=== PATIENT | female | born 1945 | race Caucasian/White ===

== ENCOUNTER 2022-05-11 09:29 | Outpatient (REF) | payer MEDICARE, MEDICAID, SELFPAY ==
--- NOTE | ~2022-05-11 | XR_ITS ---
EXAMINATION: AP BILATERAL KNEE STANDING. BILATERAL KNEE. CLINICAL INFORMATION: Bilateral knee pain. COMPARISON: None TECHNIQUE: AP bilateral knee standing. 2 views each knee. FINDINGS: AP bilateral knee standing: There is bilateral genu valgus deformity of both knees with loss of medial and lateral compartment both knees slightly worse on the right with moderate periarticular spurring lateral compartment right knee and mild periarticular spurring in the medial compartments of both knees. Is a small joint effusion without loose bodies.. Left knee: There is no visible acute fracture, dislocation or subluxation seen. No bony erosive changes. The patellofemoral compartment joint space is narrowed. There is a small anterior suprapatella enthesophyte. Superior patellar spurring is noted. Right knee: There is mild suprapatellar joint effusion with loss of right knee joint space. No bony erosive changes seen. Loss of patellofemoral compartment joint space seen. There are no loose bodies. XR/XR knee standing BI IMPRESSION: Bilateral genu valgus deformity of the knees slightly greater on the right. There is degenerative arthritic changes medial compartment both knees slightly more severe in the lateral compartment right knee. There is minimal left and mild right suprapatellar joint effusion. Degenerative arthritic changes bilateral patellofemoral compartments. No visible acute fracture or loose body seen.
--- NOTE | ~2022-05-11 | XR_ITS ---
EXAMINATION: AP BILATERAL KNEE STANDING. BILATERAL KNEE. CLINICAL INFORMATION: Bilateral knee pain. COMPARISON: None TECHNIQUE: AP bilateral knee standing. 2 views each knee. FINDINGS: AP bilateral knee standing: There is bilateral genu valgus deformity of both knees with loss of medial and lateral compartment both knees slightly worse on the right with moderate periarticular spurring lateral compartment right knee and mild periarticular spurring in the medial compartments of both knees. Is a small joint effusion without loose bodies.. Left knee: There is no visible acute fracture, dislocation or subluxation seen. No bony erosive changes. The patellofemoral compartment joint space is narrowed. There is a small anterior suprapatella enthesophyte. Superior patellar spurring is noted. Right knee: There is mild suprapatellar joint effusion with loss of right knee joint space. No bony erosive changes seen. Loss of patellofemoral compartment joint space seen. There are no loose bodies. XR/XR knee LT 2V IMPRESSION: Bilateral genu valgus deformity of the knees slightly greater on the right. There is degenerative arthritic changes medial compartment both knees slightly more severe in the lateral compartment right knee. There is minimal left and mild right suprapatellar joint effusion. Degenerative arthritic changes bilateral patellofemoral compartments. No visible acute fracture or loose body seen.
--- NOTE | ~2022-05-11 | XR_ITS ---
EXAMINATION: AP BILATERAL KNEE STANDING. BILATERAL KNEE. CLINICAL INFORMATION: Bilateral knee pain. COMPARISON: None TECHNIQUE: AP bilateral knee standing. 2 views each knee. FINDINGS: AP bilateral knee standing: There is bilateral genu valgus deformity of both knees with loss of medial and lateral compartment both knees slightly worse on the right with moderate periarticular spurring lateral compartment right knee and mild periarticular spurring in the medial compartments of both knees. Is a small joint effusion without loose bodies.. Left knee: There is no visible acute fracture, dislocation or subluxation seen. No bony erosive changes. The patellofemoral compartment joint space is narrowed. There is a small anterior suprapatella enthesophyte. Superior patellar spurring is noted. Right knee: There is mild suprapatellar joint effusion with loss of right knee joint space. No bony erosive changes seen. Loss of patellofemoral compartment joint space seen. There are no loose bodies. XR/XR knee RT 2V IMPRESSION: Bilateral genu valgus deformity of the knees slightly greater on the right. There is degenerative arthritic changes medial compartment both knees slightly more severe in the lateral compartment right knee. There is minimal left and mild right suprapatellar joint effusion. Degenerative arthritic changes bilateral patellofemoral compartments. No visible acute fracture or loose body seen.
== END 2022-05-11 09:30 | disposition home or self-care (01) ==
LOC: HO.HOSX 09:29
PROVIDERS: Visit Provider Orthopaedic Surgery
DX: M17.11 Unilateral primary osteoarthritis, right knee (principal); M25.562 Pain in left knee; Z86.73 Personal history of transient ischemic attack (TIA), and cerebral infarction without residual deficits
CPT/HCPCS: 20610; 73560; 73565; 99202; J1100

== ENCOUNTER 2023-04-24 14:09 | Outpatient (AMB) | payer MEDICARE, MEDICAID, SELFPAY ==
--- NOTE | 2023-04-24 14:38 | A.OFFVIS_ITS ---
Intake Vital Signs 04/24/23 14:45 Height 5 ft 1 in Weight 130 lb BMI 24.6 Intake Visit Reasons: New prob Bilateral numbness & pain Intake Note: Sandra 78 yr old right hand dominant female presents today with her son Sergio for bilateral hand numbness and tingling. States her right is worse. States she has weakness in hands, feels a sharp electric sharp, pins and needles sensation in fingers. States numbness started about 7 months ago and has worsen. States her numbness is constant during the day. Denies prior treatment. No EMG done. Patient doesnt recall which medication she is allergic to. Allergies No Known Allergies Allergy (Verified 04/24/23 14:42) HPI New prob Bilateral numbness & pain HPI Details Sandra is an 78 year old right hand dominant woman, here with her son Sergio, who presents with complaints of bilateral hand numbness. She complains of numbness in her hands bilaterally, for ~7 months now. She says her numbness is in all fingers of ehr right hand and is constant during the day. It was hard to get her to say if her left hand numbness felt similar, and she said several times her right ring and small fingers feel soft . She says she has weakness in her hands and has difficulty lifting or grasping objects PFS Surgical History (Updated 05/11/22 @ 10:32 by Shara Love [facility]) History of left shoulder replacement Social History (Updated 04/24/23 @ 14:45 by Maria Teresa Beaver [facility]) Current occupational status: retired and disabled Current occupation: rt hand Review of Systems Const All systems reviewed & are unremarkable except as noted in HPI and below Physical Exam Vital Signs: BMI result Body Mass Index 24.6 Const General: cooperative, healthy appearing and no acute distress Orientation/consciousness: patient oriented x3 HEENT Head: Yes normocephalic and Yes atraumatic Eyes EOM: EOMs intact bilaterally Resp Effort & Inspection: normal respiratory effort and able to speak in complete sentences Cardio Jugular venous distension: no JVD Skin General skin exam: turgor normal Rashes: no rashes Neuro General: patient oriented x3 Extrem Other: Evaluation of Right Upper Extremity: The patient is alert, oriented, and in no acute distress Neuro: Abnormal sensation to the tips of all digits of the right hand. She says her fingers feel soft compared to the fingers of her left hand Some thenar wasting, no intrinsic wasting Good APB muscle belly firing and good finger cross Vascular: Cap refill brisk ROM: She can make a fist and extend all her digits She has some mild osteoarthritic deformities of the digits of the right hand, multiple mild mallet deformities + Shoulder sign on the right No complaints of basal joint pain today Skin: No lacerations or abrasions. General: No Ecchymosis. No Erythema or evidence of infection. Psych Appearance: grossly normal Affect: normal affect Attitude: cooperative Assessment & Plan Assessment & Plan (1) Bilateral hand numbness: Code(s): R20.0 - Anesthesia of skin Plan Assessment & Plan: 1. Bilateral hand numbness To the tips of all digits, R>L Symptoms intermittent, but daily, worse at night With some thenar wasting on the right I educated her and her son about carpal tunnel & cubital tunnel syndrome I ordered a NCS to assess for peripheral neuropathy vs cervical radiculopathy She will follow up when completed for review. Scribed for Susan Ortiz MD by Perez Lawton medical technical writer, on 04/24/23 at 3:05 PM, EST. Orders: Orders NE nerve conduction velocity Today R20.0 - Anesthesia of skin, R20.2 - Paresthesia of skin Coding Level of Care Code New Pt Level 3 (07299) Diagnoses Bilateral hand numbness R20.0
[2023-04-24 14:45] VITALS: BMI 24.6
== END 2023-04-24 15:20 | disposition home or self-care (01) ==
PROVIDERS: PCP Physician Assistant Medical; Visit Provider Orthopaedic Surgery
DX: R20.0 Anesthesia of skin (principal)
CPT/HCPCS: 99203

== ENCOUNTER → 2023-04-24 14:09 | Outpatient (BNVA) | payer MEDICARE, MEDICAID, SELFPAY | PROVIDERS: PCP Physician Assistant Medical; Visit Provider Orthopaedic Surgery | DX: R20.0 Anesthesia of skin (principal) | CPT/HCPCS: 99202 ==

== ENCOUNTER 2023-05-04 14:18 | Outpatient (REF) | payer MEDICARE, MEDICAID, SELFPAY ==
--- NOTE | 2023-05-04 14:27 | EMG_ITS ---
Chief complaint: Bilateral hand numbness Atrophy right thenar Reason for referral: Evaluate for Carpal Tunnel Syndrome versus radiculopathy Referred by: Dr. Ortiz Procedure done: Bilateral upper extremities NCS/EMG Precautions and/or limitations: None The limb temperature was monitored continuously and remained between 32-36 degrees C during the performance of the NCS. Nerve Conduction Studies Anti Sensory Summary Table ?Stim Site NR Onset (ms) Norm Onset (ms) Peak (ms) Norm Peak (ms) O-P Amp (?V) Norm O-P Amp Site1 Site2 Delta-0 (ms) Dist (cm) Edvin (m/s) Norm Edvin (m/s) Left Median Anti Sensory (2nd Digit) Wrist ? 3.7 4.1 <3.6 16.9 >10 Wrist 2nd Digit 3.7 14.0 38 Right Median Anti Sensory (2nd Digit) Wrist NR <3.6 >10 Wrist 2nd Digit 14.0 Right Radial Anti Sensory (Thumb) Forearm ? 1.5 1.9 <3.1 34.0 Forearm Thumb 1.5 0.0 Left Ulnar Anti Sensory (5th Digit) Wrist ? 2.5 3.2 <3.7 21.7 >15.0 Wrist 5th Digit 2.5 14.0 56 Right Ulnar Anti Sensory (5th Digit) Wrist ? 0.7 0.8 <3.7 18.6 >15.0 Wrist 5th Digit 0.7 14.0 200 Motor Summary Table ?Stim Site NR Onset (ms) Norm Onset (ms) O-P Amp (mV) Norm O-P Amp iAmp (mV) Amp (1st) (%) Site1 Site2 Delta-0 (ms) Dist (cm) Edvin (m/s) Norm Edvin (m/s) Left Median Motor (Abd Poll Brev) Wrist ? 4.4 <3.9 7.1 >4.5 8.5 100.0 Elbow Wrist 3.8 19.0 50 >45 Elbow ? 8.2 6.9 8.3 97.2 Right Median Motor (Abd Poll Brev) Wrist NR <3.9 >4.5 Elbow Wrist 0.0 >45 Elbow NR Left Ulnar Motor (Abd Dig Minimi) Wrist ? 2.6 <3.0 5.1 >5 6.4 100.0 B Elbow Wrist 3.1 19.5 63 >45 B Elbow ? 5.7 3.8 4.8 74.5 A Elbow B Elbow 0.6 10.0 167 >45 A Elbow ? 6.3 5.6 7.1 109.8 Right Ulnar Motor (Abd Dig Minimi) Wrist ? 2.7 <3.0 5.6 >5 7.3 100.0 B Elbow Wrist 2.9 19.0 66 >45 B Elbow ? 5.6 5.9 7.7 105.4 A Elbow B Elbow 1.6 10.0 62 >45 A Elbow ? 7.2 5.6 7.2 100.0 EMG ?Side Muscle Nerve Root Ins Act Fibs Psw Amp Dur Poly Recrt Int Pat Comment Right 1stDorInt Ulnar C8-T1 Nml Nml Nml Nml Nml 0 Nml Complete Right FlexCarRad Median C6-7 Nml Nml Nml Nml Nml 0 Nml Complete Right Biceps Musculocut C5-6 Nml Nml Nml Nml Nml 0 Nml Complete Right Triceps Radial C6-7-8 Nml Nml Nml Nml Nml 0 Nml Complete Right Deltoid Axillary C5-6 Nml Nml Nml Nml Nml 0 Nml Complete Left 1stDorInt Ulnar C8-T1 Nml Nml Nml Nml Nml 0 Nml Complete Left FlexCarRad Median C6-7 Nml Nml Nml Nml Nml 0 Nml Complete Left Biceps Musculocut C5-6 Nml Nml Nml Nml Nml 0 Nml Complete Left Triceps Radial C6-7-8 Nml Nml Nml Nml Nml 0 Nml Complete Left Deltoid Axillary C5-6 Nml Nml Nml Nml Nml 0 Nml Complete FINDINGS: Right median motor nerve showed absent response. Right median sensory nerve showed absent response. Left median motor nerve showed prolonged distal latency, normal amplitude and normal conduction velocity. Left median sensory nerve showed prolonged peak latency. All other nerves tested were within normal. Concentric needle EMG was performed in selected muscles of the bilateral upper extremities. Study did not reveal signs of electric abnormalities as shown in the table below. IMPRESSION: 1. This is an abnormal study. 2. There is electrodiagnostic evidence for right severe and left moderate-severe median neuropathy at the wrists, consistent with carpal tunnel syndrome. 3. There is no electrodiagnostic evidence for ulnar neuropathy, brachial plexopathy, or cervical radiculopathy. Thank you for your kind referral. Tess Narayan MD, MACY Board Certified, [place] [employer] and [employer] (ABPMR) Board Certified, [place] [employer] Electro[employer] (ABEM) CODIN 36362 x 2 MTDD
== END 2023-05-04 14:19 | disposition home or self-care (01) ==
LOC: HO.NEURO 14:18
PROVIDERS: PCP Internal Medicine; Visit Provider Orthopaedic Surgery
DX: R20.0 Anesthesia of skin (principal); R20.2 Paresthesia of skin
CPT/HCPCS: 95886; 95911

== ENCOUNTER → 2023-05-04 14:27 | Outpatient (BNV) | payer MEDICARE, MEDICAID, SELFPAY | PROVIDERS: PCP Internal Medicine; Visit Provider Physical Medicine & Rehabilitation | DX: R20.2 Paresthesia of skin (principal); R20.0 Anesthesia of skin | CPT/HCPCS: 95886; 95911 ==

== ENCOUNTER 2023-05-30 14:54 | Outpatient (AMB) | payer MEDICARE, MEDICAID, SELFPAY ==
--- NOTE | 2023-05-30 15:04 | A.OFFVIS_ITS ---
Intake Vital Signs 05/30/23 15:14 Height 5 ft 1 in Weight 130 lb BMI 24.6 Intake Visit Reasons: OV- EMG review Intake Note: Sandra 78 yr old female presents today for her EMG review. Allergies No Known Allergies Allergy (Verified 05/30/23 15:15) HPI OV- EMG review HPI Details Sandra is an 78 year old right hand dominant woman, here with her son Sergio, for a NCS review of her bilateral hand numbness. 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 She continues to complain of numbness in the median nerve distribution bilaterally, R>L. Symptoms intermittent, but daily, worse at night. She complains of pain and aching in her finger joints, along with chills and night sweats over the last ~3 days. She says she has weakness in her hands and has difficulty lifting or grasping objects [facility] Surgical History (Updated 05/11/22 @ 10:32 by Shara Love CMA) History of left shoulder replacement Social History (Updated 04/24/23 @ 14:45 by Maria Teresa Beaver [facility]) Current occupational status: retired and disabled Current occupation: rt hand Review of Systems Const All systems reviewed & are unremarkable except as noted in HPI and below Physical Exam Vital Signs: BMI result Body Mass Index 24.6 Const General: cooperative, healthy appearing and no acute distress Orientation/consciousness: patient oriented x3 HEENT Head: Yes normocephalic and Yes atraumatic Eyes EOM: EOMs intact bilaterally Resp Effort & Inspection: normal respiratory effort and able to speak in complete sentences Cardio Jugular venous distension: no JVD Skin General skin exam: turgor normal Rashes: no rashes Neuro General: patient oriented x3 Extrem Other: Evaluation of Bilateral Upper Extremity: The patient is alert, oriented, and in no acute distress Neuro: Dense numbness in the median nerve distribution bilaterally. Some thenar wasting on the right Vascular: Cap refill brisk ROM: She can make a fist and extend all her digits She has some osteoarthritic deformities of the digits of the right hand, multiple mild mallet deformities + Shoulder sign on the right No complaints of basal joint pain today She has a mallet deformity of multiple digits of her right hand. Nerve Conduction Study: IMPRESSION: 1. This is an abnormal study. 2. There is electrodiagnostic evidence for right severe and left moderate-severe median neuropathy at the wrists, consistent with carpal tunnel syndrome. 3. There is no electrodiagnostic evidence for ulnar neuropathy, brachial plexopathy, or cervical radiculopathy. Tess Narayan MD, MACY 05/04/23 Psych Appearance: grossly normal Affect: normal affect Attitude: cooperative Assessment & Plan Assessment & Plan (1) Carpal tunnel syndrome of right wrist: Code(s): G56.01 - Carpal tunnel syndrome, right upper limb (2) Carpal tunnel syndrome of left wrist: Code(s): G56.02 - Carpal tunnel syndrome, left upper limb Plan Assessment & Plan: 1. Right carpal tunnel syndrome, severe With dense numbness With some thenar wasting 2. Left carpal tunnel syndrome, moderate-severe Symptoms intermittent, but daily, worse at night I educated her about this condition I discussed operative and non-operative treatment options The patient would like to proceed with surgery, beginning with the right hand She will follow up to discuss treatment for her left hand when she has recovered from surgery The risks and benefits of operative treatment were discussed with the patient and the patient wishes to proceed with surgery. These risks include, but are not limited to risk of damage to blood vessels, nerves, tendons, infection, recurrence, incomplete relief of preoperative symptoms, persistent pain, possible need for further surgery and the risks associated with regional blocks and anesthesia. The plan is to take the patient to the operating room sometime in the next few weeks for the following procedures: 1. Right carpal tunnel release, under local All of the preoperative paperwork including the consent was filled out today. All the patient's questions were answered. The patient understands that they will be contacted by our vascular surgery physician soon to schedule this procedure She denies Diabetes, blood thinners, heart, lung, kidney issues She has asthma and a hx of CVA. She is not on blood thinners Scribed for Susan Ortiz MD by Perez Lawton, medical biller coder, on 05/30/23 at 3:20 PM, EST. Coding Level of Care Code Est Pt Level 4 (67871) Diagnoses Carpal tunnel syndrome of right wrist G56.01 Carpal tunnel syndrome of left wrist G56.02
[2023-05-30 15:14] VITALS: BMI 24.6
== END 2023-05-30 15:31 | disposition home or self-care (01) ==
PROVIDERS: PCP Physician Assistant Medical; Visit Provider Orthopaedic Surgery
DX: G56.03 Carpal tunnel syndrome, bilateral upper limbs (principal)
CPT/HCPCS: 99214

== ENCOUNTER → 2023-05-30 14:54 | Outpatient (BNVA) | payer MEDICARE, MEDICAID, SELFPAY | PROVIDERS: PCP Physician Assistant Medical; Visit Provider Orthopaedic Surgery | DX: G56.03 Carpal tunnel syndrome, bilateral upper limbs (principal) | CPT/HCPCS: 99212 ==

== ENCOUNTER 2023-06-25 16:15 | Day surgery (SDC) | payer MEDICARE, MEDICAID, SELFPAY ==
--- NOTE | 2023-06-25 16:02 | W.PM.OPN ---
Operative Note Operative Note Date of Service: 06/25/23 Narrative: Preop diagnosis: 1. right Carpal tunnel syndrome Postop diagnosis: same Procedure: 1. right Carpal tunnel release Surgeon: Susan Ortiz MD Anesthesia: local block using 1% lidocaine with epinephrine Findings: Thickened transverse carpal ligament. EBL: Less than 5 mL Specimens: None Complications: None Disposition: Brought to recovery room in stable condition Plan: Follow-up for 10-14 days for wound check and suture removal Indications: The patient is 78 years old, with right carpal tunnel syndrome that has been unresponsive to nonoperative management. The risks and benefits of operative treatment including but not limited to risk of damage to blood vessels, nerves, tendons, infection, persistent pain, persistent symptoms, or possible need for additional surgery were discussed with the patient and the patient wishes to proceed with surgery. Procedure: Once consent was obtained a local block was performed using a combination of 1% lidocaine with epinephrine. The patient was then brought back to the operating suite and placed on the operative table in supine position. The right upper extremity was prepped and draped in a standard surgical fashion. Once assured that we had a good block, a 2.0 cm longitudinal incision was made centered over the carpal tunnel. The incision was made through the skin to the subcutaneous tissues using a #15 blade. Dissection was made down to the level of the transverse carpal ligament with care being taken to protect the palmar cutaneous nerve. Once the transverse carpal ligament was clearly visualized, a longitudinal incision was made in the transverse carpal ligament 1st using a #15 blade, then using tenotomy scissors under direct visualization. Care was taken to look for and protect the motor branch of the median nerve when seen in this area. Once satisfied with our carpal tunnel release the wound was copiously irrigated with normal saline and hemostasis was obtained with a brief period of local pressure. The skin edges were reapproximated with some 5.0 nylon suture material and a sterile dressing was applied. The patient appears to have tolerated the procedure well and with no complications. All digits were well vascularized at the conclusion of the case.
[2023-06-25 16:42] VITALS: BMI 23.6
[2023-06-25 16:43] VITALS: BP 135/79; PULSE 78; RESP 16; TEMP 36.4; O2SAT 96
--- NOTE | 2023-06-25 16:57 | PC.NURSE ---
1650 dr. bradshaw at bedside to review procedure. patient marked and time out for regional carpal tunnel local block. patient tolerated well.
--- NOTE | 2023-06-25 17:05 | MHC.SHP ---
Pre-Procedural Eval Section A Date of Service: 06/25/23 The patient is an INPATIENT: No Changes since office visit: No Cold of Flu in the past 2 weeks, No New Medical Problems, No Changes in Medication and No Patient answered all questions The History & Physical has been completed within 30 days and I have reviewed it.: Yes Section B Chief Complaint: Carpal tunnel syndrome, right upper limb Allergies: Allergies Allergy/AdvReac Type Severity Reaction Status Date / Time oxycodone AdvReac Vomiting Verified 06/25/23 16:49 Plan I have reviewed the history and physical and performed a pertinent physical examination on my patient. No changes have occurred unless specified. Time Spent With Patient Time: Total time managing care of this patient today ____ minutes.
[2023-06-25 18:35] VITALS: BP 140/75; PULSE 84; RESP 16; TEMP 36.9; O2SAT 97
== END 2023-06-25 18:39 ==
LOC: HO.SSS 16:17
PROVIDERS: PCP Internal Medicine; Visit Provider Orthopaedic Surgery
PROC: (CPT 64721; principal; 2023-06-25 13:10)
DX: G56.01 Carpal tunnel syndrome, right upper limb (principal); Z86.73 Personal history of transient ischemic attack (TIA), and cerebral infarction without residual deficits
CPT/HCPCS: 64721; J0171

== ENCOUNTER → 2023-06-25 16:15 | Outpatient (BNV) | payer MEDICARE, MEDICAID, SELFPAY | PROVIDERS: PCP Internal Medicine; Visit Provider Orthopaedic Surgery | DX: G56.01 Carpal tunnel syndrome, right upper limb (principal) | CPT/HCPCS: 64721 ==

== ENCOUNTER 2023-07-11 12:44 | Outpatient (AMB) | payer MEDICARE, MEDICAID, SELFPAY ==
--- NOTE | 2023-07-11 12:47 | A.OFFVIS_ITS ---
Intake Vital Signs 07/11/23 12:48 Height 5 ft 1 in Weight 125 lb BMI 23.6 Intake Visit Reasons: PO RT CTR 06/25/23AR Intake Note: Sandra an 78 year old female presents today for a post operative right CTR, DOS 06/25/23 AR. Patient reports she is doing well, she continues to have mild pain at incision area. Allergies oxycodone Adverse Reaction (Verified 07/11/23 12:49) Vomiting HPI PO RT CTR 06/25/23AR HPI Details 78-year-old female who returns to the [facility] today for post-op right CTR, 06/25/[address] Ortiz. She continues to have mild pain at the incision area but is doing well otherwise. She has no concerns today. [facility] Surgical History History of left shoulder replacement Social History Current occupational status: retired and disabled Current occupation: rt hand Review of Systems Const All systems reviewed & are unremarkable except as noted in HPI and below Physical Exam Vital Signs: BMI result Body Mass Index 23.6 Extrem Other: Right wrist: Incision clean, dry and intact. No erythema or drainage. On exam she still experiences some numbness along the median nerve distribution with some tenderness along the carpal canal. Results Reviewed Results Reviewed: Date of Service: 06/25/23 Narrative: Preop diagnosis: 1. right Carpal tunnel syndrome Postop diagnosis: same Procedure: 1. right Carpal tunnel release Surgeon: Susan Ortiz MD Anesthesia: local block using 1% lidocaine with epinephrine Findings: Thickened transverse carpal ligament. Assessment & Plan Assessment & Plan (1) Carpal tunnel syndrome of right wrist: Code(s): G56.01 - Carpal tunnel syndrome, right upper limb Plan Sutures removed today, steri strips applied. I did reassure her over the next 6 weeks symptoms should improve but I also explain that with sever CTS it is unclear to which extent it will improve. I did explain with this type of surgery when the neuropathy is severe our goal is to try and prevent permanent damage. She does understand this. She will begin increasing activity as tolerated. I did advise that she keeps the area clean and dry to allow for proper healing and she will contact the office if symptoms arise, otherwise as needed. Patient Instructions: Scribed for Dread Alva PA-C, by Jude Vasquez, medical device, on 07/11/2023 at 12:45 PM EST. I, Dread Alva PA-C, have personally reviewed and agree with the information entered by the scribe. Coding Level of Care Code Global (41338) Diagnoses Carpal tunnel syndrome of right wrist G56.01
[2023-07-11 12:48] VITALS: BMI 23.6
== END 2023-07-11 13:57 | disposition home or self-care (01) ==
PROVIDERS: PCP Physician Assistant Medical; Visit Provider Physician Assistant
DX: G56.01 Carpal tunnel syndrome, right upper limb (principal)
CPT/HCPCS: 99024

== ENCOUNTER → 2023-07-11 12:44 | Outpatient (BNVA) | payer MEDICARE, MEDICAID, SELFPAY | PROVIDERS: PCP Physician Assistant Medical; Visit Provider Physician Assistant ==